=== PATIENT | male | born 1965 | race Caucasian/White ===

== ENCOUNTER 2019-09-04 16:13 | Inpatient (IN) | payer BC ==
[2019-09-04 19:20] VITALS: BMI 22.9
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
[2019-09-05] MEDS ORDERED: BISMUTH SUBSALICYLATE 524 MG/30 ML UD PO PRN (00:27)
[2019-09-05] MEDS ORDERED: MAG HYDROX/AL HYDROX/SIMETH 30 ML UNIT-DOSE CUP PO PRN (00:27)
[2019-09-05] MEDS ORDERED: LORazepam 1 MG TABLET PO ONE (00:27)
[2019-09-05] MEDS ORDERED: MELATONIN 5 MG TABLETS PO PRN (00:27)
[2019-09-05] MEDS ORDERED: MENTHOL/PHENOL 1 EACH UD MM PRN (00:27)
[2019-09-05] MEDS ORDERED: MAGNESIUM CITRATE 300 ML BOTTLE PO PRN (00:27)
[2019-09-05] MEDS ORDERED: MAGNESIUM HYDROX 2400MG/30ML ORAL SUSPENSION 30 ML CUP PO PRN (00:27)
[2019-09-05] MEDS ORDERED: ACETAMINOPHEN 325 MG TABLET (FP) PO PRN ×2 (00:27)
[2019-09-05] MEDS ORDERED: LORazepam 1 MG TABLET PO PRN (00:27)
[2019-09-05] MEDS ORDERED: NICOTINE POLACRILEX 2 MG GUM BUC PRN (00:27)
[2019-09-05] MEDS ORDERED: hydrOXYzine PAMOATE 25 MG CAPSULE (FP) PO PRN (00:27)
[2019-09-05] MEDS ORDERED: LORazepam 1 MG TABLET PO SCH (05:00)
[2019-09-05] MEDS ORDERED: METHADONE HCL 10 MG TABLET PO SCH (09:00)
[2019-09-05] MEDS ORDERED: METHADONE HCL 10 MG TABLET ONE (09:36)
[2019-09-05] MEDS ORDERED: METHADONE HCL 40 MG DISPERSABLE TABLET ONE (09:36)
[2019-09-05] MEDS: METHADONE 40 MG, METHADONE 10 MG PO SCH (09:43)
[2019-09-05] MEDS: PRENATAL VITAMINS W/ FOLIC ACID TABLET (FP) PO SCH (09:44)
[2019-09-05] MEDS: NICOTINE 21 MG/24 HOURS TOPICAL PATCH TD SCH (09:45)
[2019-09-05] MEDS: IBUPROFEN 400 MG TABLET (FP) PO PRN ×2 (09:46→18:07)
[2019-09-05] MEDS ORDERED: NICOTINE 14 MG/24 HOURS TOPICAL PATCH TD SCH (10:00)
[2019-09-05] MEDS ORDERED: diazePAM 5 MG TABLET PO ONE (10:31)
[2019-09-05] MEDS: METHOCARBAMOL 500 MG TABLET PO PRN (10:45)
[2019-09-05] MEDS: diazePAM 5 MG TABLET PO PRN ×2 (12:13→18:07)
--- NOTE | 2019-09-05 15:32 | PN ---
S CIWA - CIWA Score Nausea/Vomitin-No Nausea/No Vomiting Muscle Tremors: 2 Anxiety: 5 Agitation: 4-Moderately Restless Paroxysmal Sweats: No Perspiration Orientation: 0-Oriented Tacttile Disturbances: 0-None Auditory Disturbances: 0-None Visual Disturbances: 1-Very Mild Sensitivity Headache: 2-Mild CIWA-Ar Total Score: 14 S Progress Note (SOAP) Subjective: Anxious, Agitated, Tremors, Sweating, H/A. Objective: PATIENT A & O X 3, OBSERVED AMBULATING ON DETOX UNIT UNASSISTED. IN NO ACUTE DISTRESS. 09/05/19 15:32 Vital Signs Temperature 97.7 F 09/05/19 13:29 Pulse Rate 75 09/05/19 13:29 Respiratory Rate 18 09/05/19 13:29 Blood Pressure 105/66 09/05/19 13:29 O2 Sat by Pulse Oximetry (%) RESULTS OF DETOX ADMISSION LABS PENDING. LABS NOTED. 09/05/19 15:33 Assessment: 09/05/19 15:33 WITHDRAWAL SYMPTOMS. 09/05/19 15:33 Plan: CONTINUE DETOX. PATIENT REQUEST TO BE PRESCRIBED 60 MG ORAL MMTP DOSE WHILE ADMITTED FOR DETOX AND REPORTS THAT THAT IS THE DOSE THAT HE IS SUPPOSED TO BE TAKING. HOWEVER, PER VERIFICATION DONE ON DETOX ADMISSION, PATIENT CURRENTLY PRESCRIBED 50 MG ORALLY DAILY AT MMTP PROGRAM. THIS INFORMATION ALSO CONFIRMED BY Elyse HUFF RN. PATIENT REPORTS THAT ATIVAN DETOX PROTOCOL IS NOT EFFECTIVE FOR HIM IN TERMS OF AMELIORATING WITHDRAWAL SYMPTOMS. AT PATIENT'S REQUEST, DETOX MEDICATION REGIMEN CHANGED TO VALIUM DETOX REGIMEN.
[2019-09-05] MEDS: THIAMINE HCL 100 MG TABLET (FP) PO SCH (22:10)
[2019-09-05] MEDS: diazePAM 5 MG TABLET PO SCH (22:10)
--- NOTE | 2019-09-05 23:26 | EKG ---
Test Reason : Blood Pressure : / mmHG Vent. Rate : 055 BPM Atrial Rate : 055 BPM P-R Int : 144 ms QRS Dur : 082 ms QT Int : 420 ms P-R-T Axes : 056 025 045 degrees QTc Int : 401 ms SINUS BRADYCARDIA OTHERWISE NORMAL ECG WHEN COMPARED WITH ECG OF 10-AUG-2015 14:30, QT HAS SHORTENED Confirmed by SANTOS CARNEY MD ([id number]) on 09/05/2019 11:26:31 PM Referred By: JACK SHELTON Confirmed By:SANTOS CARNEY MD
[2019-09-06] MEDS ORDERED: LORazepam 1 MG TABLET PO SCH (05:00)
[2019-09-06] MEDS ORDERED: METHADONE HCL 10 MG TABLET ONE (05:03)
[2019-09-06] MEDS ORDERED: METHADONE HCL 40 MG DISPERSABLE TABLET ONE (05:04)
[2019-09-06] MEDS: METHADONE 40 MG, METHADONE 10 MG PO SCH (07:21)
[2019-09-06] MEDS: diazePAM 5 MG TABLET PO SCH ×3 (07:21→22:09)
[2019-09-06 10:01] LABS: HEMATOCRIT 34.2 % (35.4-49); HEMOGLOBIN 10.8 GM/dL (11.7-16.9); MCH 24.4 pg (25.7-33.7); MCHC 31.6 g/dl (32.0-35.9); MEAN CELL VOLUME 77.4 fl (80-96); MEAN PLT VOLUME 7.8 fl (7.5-11.1); PLATELET COUNT 166 K/MM3 (134-434); RBC 4.41 M/mm3 (4.00-5.60); RDW 18.5 % (11.9-15.9); WHITE BLOOD COUNT 2.8 K/mm3 (4.0-10.0)
[2019-09-06 10:09] LABS: BILIRUBIN,TOTAL 0.2 mg/dL (0.2-1); BLOOD UREA NITROGEN 22.9 mg/dL (7-18); CALCIUM 8.6 mg/dL (8.5-10.1); CREATININE 0.8 mg/dL (0.55-1.3); POTASSIUM 3.8 mmol/L (3.5-5.1)
[2019-09-06] MEDS: PRENATAL VITAMINS W/ FOLIC ACID TABLET (FP) PO SCH (10:19)
[2019-09-06] MEDS: NICOTINE 21 MG/24 HOURS TOPICAL PATCH TD SCH (10:19)
--- NOTE | 2019-09-06 11:15 | CONSULT ---
[facility] Psychiatric Consult - Data Date of interview: 09/06/19 Admission source: [facility] Identifying data: Patient is a 54 year old single sammar[place] male, without children, unemployed, homeless, and denies receiving financial assistance. This is one of multiple admissions for patient. Patient admitted to for alcohol, cocaine, opiate dependence. Substance Abuse History: Smoking Cessation. Smoking history: Current every day smoker. Have you smoked in the past 12 months: Yes. Aproximately how many cigarettes per day: 20. Hx Chewing Tobacco Use: No. Initiated information on smoking cessation: Yes. 'Breaking Loose' booklet given: 09/05/19. - Substance & Tx. History. Hx Alcohol Use: Yes. Hx Substance Use: Yes. Substance Use Type : Cocaine, Heroin, Marijuana. Hx Substance Use Treatment: Yes. - Substances abused. Alcohol. Substance route: Oral. Frequency: Daily. Amount used: 2 to 6 packs of beer/ Ellen. Age of first use: 12. Date of last use: . Heroin. Substance route: Inhalation. Frequency: Daily. Amount used: 5 bags. Age of first use: 12. Date of last use: 09/02/19. Cocaine. Substance route: Inhalation. Frequency: Daily. Amount used: 2 to 3 bags of 20 dollars. Age of first use: 15. Date of last use: 09/02/19 Medical History: Anemia, HIV, Herpes Psychiatric History: Patient's first psychiatric contact was in 1999 while in [place] [facility]. He was diagnosed with depression and prescribed zoloft. Mr. Rangel reports history of two psychiatric hospitalization at [facility] (2017) and [facility] (unsure of date). Denies history of suicide attempt and is not currently receiving outpatient psychiatric care. At present patient presents as fatigue and sedated. Physical/Sexual Abuse/Trauma History: denies. Mental Status Exam - Mental Status Exam Alert and Oriented to: Time, Place, Person Cognitive Function: Fair Patient Appearance: Well Groomed Mood: Withdrawn Affect: Mood Congruent Patient Behavior: Sedated (mildly sedated), Fatigued Speech Pattern: Delayed Voice Loudness: Mildly Soft/Quiet Thought Process: Goal Oriented Thought Disorder: Not Present Hallucinations: Denies Suicidal Ideation: Denies Homicidal Ideation: Denies Insight/Judgement: Poor Sleep: Fair Appetite: Fair Muscle strength/Tone: Normal Gait/Station: Normal Psychiatric Findings - Problem List ([place] 1, 2,3) (1) Cocaine dependence Current Visit: Yes Status: Chronic Qualifiers: Substance use status: uncomplicated Qualified Code(s): F14.20 - Cocaine dependence, uncomplicated (2) Nicotine dependence Current Visit: Yes Status: Chronic Qualifiers: Nicotine product type: cigarettes Substance use status: uncomplicated Qualified Code(s): F17.210 - Nicotine dependence, cigarettes, uncomplicated (3) Opioid dependence with withdrawal Current Visit: Yes Status: Acute (4) Substance induced mood disorder Current Visit: Yes Status: Acute - Initial Treatment Plan Initial Treatment Plan: Psychoeducation provided. Detoxification in progress. Will order Zoloft 50mg daily. Benefits and side effects discussed. Verbal consent given.
--- NOTE | 2019-09-06 13:59 | PN ---
[facility] CIWA - CIWA Score Nausea/Vomitin-Mild Nausea/No Vomiting Muscle Tremors: 2 Anxiety: 2 Agitation: 2 Paroxysmal Sweats: 2 Orientation: 0-Oriented Tacttile Disturbances: 0-None Auditory Disturbances: 0-None Visual Disturbances: 0-None Headache: 0-None Present CIWA-Ar Total Score: 9 [facility] Progress Note (SOAP) Subjective: Feeling depressed (takes zoloft 50mg daily at home but hasn't taken for past one week), states I'm better off because I'm in a lot of pain, prays that God kills me, I have no plan to hurt myself, I feel sad and hopeless, I don't care about anybody, I'm useless. Runny nose, anxiety, poor sleep. Objective: 09/06/19 13:59 Last Vital Signs Temp Pulse Resp BP Pulse Ox 97.3 F L 68 16 102/64 09/06/19 12:10 09/06/19 12:10 09/06/19 12:10 09/06/19 12:10 Laboratory Tests 09/06/19 09/06/19 09/06/19 07:50 07:50 07:50 WBC 2.8 L RBC 4.41 Hgb 10.8 L Hct 34.2 L MCV 77.4 L MCH 24.4 L MCHC 31.6 L RDW 18.5 H Plt Count 166 D MPV 7.8 Sodium 142 Potassium 3.8 Chloride 108 H Carbon Dioxide 28 Anion Gap 5 L BUN 22.9 H Creatinine 0.8 Est GFR (CKD-EPI)AfAm 116.56 Est GFR (CKD-EPI)NonAf 100.57 Random Glucose 108 H Calcium 8.6 Total Bilirubin 0.2 AST 10 L ALT 15 Alkaline Phosphatase 72 Total Protein 6.0 L Albumin 3.0 L RPR Titer Nonreactive Labs reviewed: wbc 2.8 (L), h/h 10.8/34.2 (L), BUN 22.9 (high), albumin 3.0 (L) Assessment: 09/06/19 14:02 Withdrawal sxs Patient c/o feeling depressed, has h/o depression Noted with anemia, leukopenia, azotemia and hypoalbuminemia Plan: Continue detox Encouraged PO water intake Seen by Psychiatrist for depression (Psychiatrist informed about patient's complaints). Anemia: patient reports h/o anemia, not on medication. Most likely due to chronic alcoholism, follow up with PCP for management. Leukopenia: encouraged good hand washing with soap and water before and after eating/using bathroom, repeat CBC Azotemia: encouraged to drink more water Hypoalbuminemia: most likely due to chronic alcoholism and not eating, encouraged diet
[2019-09-06] MEDS: diazePAM 5 MG TABLET PO PRN (16:50)
[2019-09-06] MEDS: METHOCARBAMOL 500 MG TABLET PO PRN (16:50)
[2019-09-06] MEDS: THIAMINE HCL 100 MG TABLET (FP) PO SCH (22:09)
[2019-09-07] MEDS ORDERED: LORazepam 0.5 MG TABLET PO PRN
[2019-09-07] MEDS ORDERED: METHADONE HCL 10 MG TABLET ONE (03:46)
[2019-09-07] MEDS ORDERED: METHADONE HCL 40 MG DISPERSABLE TABLET ONE (03:46)
[2019-09-07] MEDS ORDERED: LORazepam 0.5 MG TABLET PO SCH (05:00)
[2019-09-07] MEDS: METHADONE 40 MG, METHADONE 10 MG PO SCH (05:47)
[2019-09-07] MEDS: diazePAM 5 MG TABLET PO SCH ×2 (05:47→17:20)
[2019-09-07] MEDS: SERTRALINE HCL 50 MG TABLET (FP) PO SCH (10:36)
[2019-09-07] MEDS: PRENATAL VITAMINS W/ FOLIC ACID TABLET (FP) PO SCH (10:36)
[2019-09-07] MEDS: NICOTINE 21 MG/24 HOURS TOPICAL PATCH TD SCH (10:36)
--- NOTE | 2019-09-07 11:50 | PN ---
S CIWA - CIWA Score Nausea/Vomitin-Mild Nausea/No Vomiting Muscle Tremors: 1-None Visible, but [place] Anxiety: 2 Agitation: 1-Slight > Activity Paroxysmal Sweats: No Perspiration Orientation: 0-Oriented Tacttile Disturbances: 1-Very Mild Itch/Numbness Auditory Disturbances: 0-None Visual Disturbances: 0-None Headache: 1-Very Mild CIWA-Ar Total Score: 7 [facility] Progress Note (SOAP) Subjective: alert,irritable,anxious,interrupted sleep,pain in the body Objective: 09/07/19 11:48 Vital Signs Temperature 98.2 F 09/07/19 11:24 Pulse Rate 81 09/07/19 11:24 Respiratory Rate 18 09/07/19 11:24 Blood Pressure 117/67 09/07/19 11:24 O2 Sat by Pulse Oximetry (%) Assessment: 09/07/19 11:48 repeat cbc pending Plan: continue detox ativan regimen,hiv non compliance,last medication 2 weeks ago, discharge in am
[2019-09-07 13:29] LABS: BASO % 0.9 % (0-2.0); EOS % 2.6 % (0-4.5); HEMATOCRIT 36.7 % (35.4-49); HEMOGLOBIN 11.7 GM/dL (11.7-16.9); LYMPH % 55.2 % (8-40); MCHC 31.8 g/dl (32.0-35.9); MEAN CELL VOLUME 78.6 fl (80-96); MEAN PLT VOLUME 8.1 fl (7.5-11.1); NEUT % 31.3 % (42.8-82.8); PLATELET COUNT 183 K/MM3 (134-434); RBC 4.68 M/mm3 (4.00-5.60); RDW 18.8 % (11.9-15.9); WHITE BLOOD COUNT 3.7 K/mm3 (4.0-10.0)
[2019-09-07] MEDS: THIAMINE HCL 100 MG TABLET (FP) PO SCH (22:12)
[2019-09-07] MEDS: METHOCARBAMOL 500 MG TABLET PO PRN (22:13)
[2019-09-08] MEDS ORDERED: METHADONE HCL 10 MG TABLET ONE (04:21)
[2019-09-08] MEDS ORDERED: METHADONE HCL 40 MG DISPERSABLE TABLET ONE (04:22)
[2019-09-08] MEDS ORDERED: LORazepam 0.5 MG TABLET PO ONE (05:00)
[2019-09-08] MEDS: METHADONE 40 MG, METHADONE 10 MG PO SCH (05:39)
[2019-09-08] MEDS ORDERED: diazePAM 5 MG TABLET PO ONE (06:00)
--- NOTE | 2019-09-08 08:56 | DS ---
[facility] Detox Discharge Summary Admission Date: 09/05/19 Discharge Date: 09/08/19 - History Present History: Alcohol Dependence, Cocaine Dependence, Opioid Dependence - Physical Exam Results Vital Signs: Vital Signs Temperature 97.9 F 09/08/19 06:00 Pulse Rate 75 09/08/19 06:00 Respiratory Rate 18 09/08/19 06:00 Blood Pressure 118/65 09/08/19 06:00 O2 Sat by Pulse Oximetry (%) Pertinent Admission Physical Exam Findings: pt arrived in withdrawals Vital Signs Temperature 97.9 F 09/08/19 06:00 Pulse Rate 75 09/08/19 06:00 Respiratory Rate 18 09/08/19 06:00 Blood Pressure 118/65 09/08/19 06:00 O2 Sat by Pulse Oximetry (%) Laboratory Tests 09/06/19 09/06/19 09/06/19 07:50 07:50 07:50 WBC 2.8 L RBC 4.41 Hgb 10.8 L Hct 34.2 L MCV 77.4 L MCH 24.4 L MCHC 31.6 L RDW 18.5 H Plt Count 166 D MPV 7.8 Absolute Neuts (auto) Neutrophils % Lymphocytes % Monocytes % Eosinophils % Basophils % Nucleated RBC % Sodium 142 Potassium 3.8 Chloride 108 H Carbon Dioxide 28 Anion Gap 5 L BUN 22.9 H Creatinine 0.8 Est GFR (CKD-EPI)AfAm 116.56 Est GFR (CKD-EPI)NonAf 100.57 Random Glucose 108 H Calcium 8.6 Total Bilirubin 0.2 AST 10 L ALT 15 Alkaline Phosphatase 72 Total Protein 6.0 L Albumin 3.0 L RPR Titer Nonreactive 09/07/19 08:17 WBC 3.7 L RBC 4.68 Hgb 11.7 Hct 36.7 MCV 78.6 L MCH 25.0 L MCHC 31.8 L RDW 18.8 H Plt Count 183 MPV 8.1 Absolute Neuts (auto) 1.2 L Neutrophils % 31.3 L D Lymphocytes % 55.2 H D Monocytes % 10.0 Eosinophils % 2.6 D Basophils % 0.9 D Nucleated RBC % 0 Sodium Potassium Chloride Carbon Dioxide Anion Gap BUN Creatinine Est GFR (CKD-EPI)AfAm Est GFR (CKD-EPI)NonAf Random Glucose Calcium Total Bilirubin AST ALT Alkaline Phosphatase Total Protein Albumin RPR Titer H:H show improvement aaox3 ambulating no acute distress - Treatment Hospital Course: Detox Protocol Followed, Detoxed Safely, Responded well, Discharged Condition Good, Rehab Referral Accepted Patient has Accepted a Rehab Referral to: pt referral provided - Diagnosis (1) Opioid dependence with withdrawal Current Visit: Yes Status: Chronic (2) Substance induced mood disorder Current Visit: Yes Status: Acute (3) Cocaine dependence Current Visit: Yes Status: Chronic Qualifiers: Substance use status: uncomplicated Qualified Code(s): F14.20 - Cocaine dependence, uncomplicated (4) HIV (human immunodeficiency virus infection) Current Visit: Yes Status: Chronic Qualifiers: HIV symptom status: unspecified Qualified Code(s): B20 - Human immunodeficiency virus [HIV] disease (5) Nicotine dependence Current Visit: Yes Status: Chronic Qualifiers: Nicotine product type: cigarettes Substance use status: uncomplicated Qualified Code(s): F17.210 - Nicotine dependence, cigarettes, uncomplicated (6) Alcohol abuse Current Visit: No Status: Acute (7) MDD (major depressive disorder), recurrent episode Current Visit: No Status: Acute (8) Opioid dependence Current Visit: Yes Status: Chronic Qualifiers: Substance use status: uncomplicated Qualified Code(s): F11.20 - Opioid dependence, uncomplicated (9) Substance induced mood disorder Current Visit: No Status: Chronic - AMA Did Patient Leave Against Medical Advice: No
[2019-09-08 09:17] VITALS: BP 116/63; PULSE 84; TEMP 98.8
[2019-09-08] MEDS: SERTRALINE HCL 50 MG TABLET (FP) PO SCH (10:14)
[2019-09-08] MEDS: PRENATAL VITAMINS W/ FOLIC ACID TABLET (FP) PO SCH (10:14)
[2019-09-08] MEDS: NICOTINE 21 MG/24 HOURS TOPICAL PATCH TD SCH (10:15)
== END 2019-09-08 11:35 | disposition home or self-care (01) | DRG 773 ==
LOC: YASAS 16:13 → Y6N 09-05 00:42
PROVIDERS: ADMIT Allergy & Immunology; ATTEND Allergy & Immunology
PROC: HZ2ZZZZ Detoxification Services for Substance Abuse Treatment (ICD-10-PCS; principal; 2019-09-05)
DX: F10.230 Alcohol dependence with withdrawal, uncomplicated (principal); F11.23 Opioid dependence with withdrawal; F14.20 Cocaine dependence, uncomplicated; F17.210 Nicotine dependence, cigarettes, uncomplicated; F33.1 Major depressive disorder, recurrent, moderate; F19.24 Other psychoactive substance dependence with psychoactive substance-induced mood disorder; Z21 Asymptomatic human immunodeficiency virus [HIV] infection status; E88.09 Other disorders of plasma-protein metabolism, not elsewhere classified; D64.9 Anemia, unspecified; D72.819 Decreased white blood cell count, unspecified; R79.89 Other specified abnormal findings of blood chemistry; Z86.19 Personal history of other infectious and parasitic diseases
CPT/HCPCS: 36415; 80053; 85025; 85027; 86593; 93005; 93010

== ENCOUNTER 2022-07-06 11:28 | Inpatient (IN) | payer BC ==
[2022-07-06 12:22] VITALS: BMI 20.7
[2022-07-06] MEDS ORDERED: MAGNESIUM HYDROX 2400MG/30ML ORAL SUSPENSION 30 ML CUP PO PRN (13:49)
[2022-07-06] MEDS ORDERED: NALOXONE HCL (KLOXXADO) 8 MG SPRAY NS PRN (13:49)
[2022-07-06] MEDS ORDERED: BISMUTH SUBSALICYLATE 262 MG/15 ML BTL PO PRN (13:49)
[2022-07-06] MEDS ORDERED: DICYCLOMINE HCL 10 MG CAPSULE PO PRN (13:49)
[2022-07-06] MEDS ORDERED: LOPERAMIDE HCL 2 MG CAPSULE PO PRN (13:49)
[2022-07-06] MEDS ORDERED: MAG HYDROX/AL HYDROX/SIMETH 30 ML UNIT-DOSE CUP PO PRN (13:49)
[2022-07-06] MEDS ORDERED: IBUPROFEN 400 MG TABLET (FP) PO PRN (13:49)
[2022-07-06] MEDS ORDERED: BENZOCAINE/MENTHOL (CHLORASEPTIC ) LOZENGE MM PRN (13:49)
[2022-07-06] MEDS ORDERED: MAGNESIUM CITRATE 300 ML BOTTLE PO PRN (13:49)
[2022-07-06] MEDS ORDERED: ONDANSETRON *ODT* 4 MG TABLET SL PRN (13:49)
[2022-07-06] MEDS ORDERED: ACETAMINOPHEN 325 MG TABLET (FP) PO PRN ×2 (13:49)
[2022-07-06] MEDS ORDERED: IBUPROFEN 600 MG TABLET (FP) PO PRN (13:49)
[2022-07-06] MEDS ORDERED: cloNIDine HCL 0.1 MG TABLET PO PRN (13:57)
[2022-07-06] MEDS ORDERED: diazePAM 5 MG TABLET PO PRN (13:59)
[2022-07-06] MEDS: hydrOXYzine PAMOATE 25 MG CAPSULE (FP) PO SCH ×3 (15:17→22:49)
[2022-07-06] MEDS: NICOTINE 21 MG/24 HOURS TOPICAL PATCH TD SCH (15:18)
[2022-07-06] MEDS: NICOTINE 10 MG CARTRIDGE (INHALER) IH PRN (15:19)
[2022-07-06] MEDS ORDERED: methaDONE HCL 10 MG TABLET (FOR DETOX USE ONLY) PO ONE (17:00)
[2022-07-06] MEDS: diazePAM 5 MG TABLET PO SCH ×2 (18:04→22:51)
[2022-07-06] MEDS: MELATONIN 5 MG TABLETS PO SCH (22:49)
[2022-07-06] MEDS: THIAMINE HCL 100 MG TABLET (FP) PO SCH (22:49)
[2022-07-06] MEDS: BACITRACIN 15 GM TUBE TOPICAL OINTMENT TP SCH (22:51)
[2022-07-07] MEDS: diazePAM 5 MG TABLET PO SCH ×4 (05:27→22:25)
[2022-07-07] MEDS: hydrOXYzine PAMOATE 25 MG CAPSULE (FP) PO SCH ×5 (05:27→22:25)
[2022-07-07] MEDS: PRENATAL VITAMINS W/ FOLIC ACID TABLET (FP) PO SCH (10:50)
[2022-07-07] MEDS: NICOTINE 21 MG/24 HOURS TOPICAL PATCH TD SCH (10:50)
[2022-07-07] MEDS: SERTRALINE HCL 50 MG TABLET (FP) PO SCH (10:50)
[2022-07-07] MEDS: METHOCARBAMOL 500 MG TABLET PO PRN ×2 (10:50→22:28)
[2022-07-07] MEDS: BACITRACIN 15 GM TUBE TOPICAL OINTMENT TP SCH ×2 (10:51→22:48)
[2022-07-07 12:11] LABS: HEMATOCRIT 31.4 % (35.4-49); HEMOGLOBIN 9.9 GM/dL (11.7-16.9); MCH 24.5 pg (25.7-33.7); MCHC 31.5 g/dl (32.0-35.9); MEAN PLT VOLUME 7.4 fl (7.5-11.1); PLATELET COUNT 246 10^3/uL (134-434); RBC 4.02 M/mm3 (4.00-5.60); RDW 16.3 % (11.9-15.9); WHITE BLOOD COUNT 4.1 K/mm3 (4.0-10.0)
[2022-07-07 12:25] LABS: ALBUMIN 2.6 g/dl (3.4-5.0); BLOOD UREA NITROGEN 25.7 mg/dL (7-18)
[2022-07-07 12:28] LABS: CREATININE 0.8 mg/dL (0.55-1.3)
[2022-07-07 12:31] LABS: BILIRUBIN,TOTAL 0.3 mg/dL (0.2-1); TOT PROT 5.9 g/dl (6.4-8.2)
[2022-07-07] MEDS: NICOTINE 10 MG CARTRIDGE (INHALER) IH PRN ×2 (13:48→22:26)
[2022-07-07] MEDS: THIAMINE HCL 100 MG TABLET (FP) PO SCH (22:25)
[2022-07-07] MEDS: MELATONIN 5 MG TABLETS PO SCH (22:25)
[2022-07-08] MEDS: hydrOXYzine PAMOATE 25 MG CAPSULE (FP) PO SCH ×5 (05:40→22:46)
[2022-07-08] MEDS: diazePAM 5 MG TABLET PO SCH ×3 (05:40→22:47)
[2022-07-08] MEDS ORDERED: methaDONE HCL 10 MG TABLET (FOR DETOX USE ONLY) PO ONE (10:00)
[2022-07-08] MEDS: PRENATAL VITAMINS W/ FOLIC ACID TABLET (FP) PO SCH (10:40)
[2022-07-08] MEDS: NICOTINE 10 MG CARTRIDGE (INHALER) IH PRN ×2 (10:41→16:24)
[2022-07-08] MEDS: NICOTINE 21 MG/24 HOURS TOPICAL PATCH TD SCH (10:41)
[2022-07-08] MEDS: METHOCARBAMOL 500 MG TABLET PO PRN (10:42)
[2022-07-08] MEDS: SERTRALINE HCL 50 MG TABLET (FP) PO SCH (10:42)
[2022-07-08] MEDS: BACITRACIN 15 GM TUBE TOPICAL OINTMENT TP SCH ×2 (10:46→22:45)
[2022-07-08] MEDS: THIAMINE HCL 100 MG TABLET (FP) PO SCH (22:46)
[2022-07-08] MEDS: MELATONIN 5 MG TABLETS PO SCH (22:46)
[2022-07-09] MEDS: diazePAM 5 MG TABLET PO SCH ×2 (06:16→17:42)
[2022-07-09] MEDS: hydrOXYzine PAMOATE 25 MG CAPSULE (FP) PO SCH ×5 (06:17→21:54)
[2022-07-09] MEDS: NICOTINE 10 MG CARTRIDGE (INHALER) IH PRN ×2 (08:51→21:54)
[2022-07-09] MEDS: PRENATAL VITAMINS W/ FOLIC ACID TABLET (FP) PO SCH (10:13)
[2022-07-09] MEDS: SERTRALINE HCL 50 MG TABLET (FP) PO SCH (10:13)
[2022-07-09] MEDS: BACITRACIN 15 GM TUBE TOPICAL OINTMENT TP SCH ×2 (10:14→21:54)
[2022-07-09] MEDS: NICOTINE 21 MG/24 HOURS TOPICAL PATCH TD SCH (10:14)
[2022-07-09] MEDS: METHOCARBAMOL 500 MG TABLET PO PRN (10:15)
[2022-07-09 10:39] LABS: CALCIUM 8.9 mg/dL (8.5-10.1)
[2022-07-09 10:42] LABS: CREATININE 0.8 mg/dL (0.55-1.3)
[2022-07-09] MEDS: MELATONIN 5 MG TABLETS PO SCH (21:54)
[2022-07-09] MEDS: THIAMINE HCL 100 MG TABLET (FP) PO SCH (21:54)
[2022-07-10] MEDS: hydrOXYzine PAMOATE 25 MG CAPSULE (FP) PO SCH ×5 (05:44→22:40)
[2022-07-10] MEDS ORDERED: diazePAM 5 MG TABLET PO ONE (06:00)
[2022-07-10] MEDS ORDERED: methaDONE HCL 10 MG TABLET (FOR DETOX USE ONLY) PO ONE (10:00)
[2022-07-10] MEDS: SERTRALINE HCL 50 MG TABLET (FP) PO SCH (11:01)
[2022-07-10] MEDS: NICOTINE 21 MG/24 HOURS TOPICAL PATCH TD SCH (11:01)
[2022-07-10] MEDS: PRENATAL VITAMINS W/ FOLIC ACID TABLET (FP) PO SCH (11:07)
[2022-07-10] MEDS: BACITRACIN 15 GM TUBE TOPICAL OINTMENT TP SCH ×2 (11:07→22:40)
[2022-07-10] MEDS: NICOTINE 10 MG CARTRIDGE (INHALER) IH PRN (11:07)
[2022-07-10] MEDS: METHOCARBAMOL 500 MG TABLET PO PRN (11:07)
[2022-07-10] MEDS: MELATONIN 5 MG TABLETS PO SCH (22:40)
[2022-07-10] MEDS: THIAMINE HCL 100 MG TABLET (FP) PO SCH (22:40)
[2022-07-11] MEDS: hydrOXYzine PAMOATE 25 MG CAPSULE (FP) PO SCH ×2 (06:23→10:28)
[2022-07-11 09:13] VITALS: BP 91/53; PULSE 90; RESP 16; TEMP 97.3
[2022-07-11] MEDS: BACITRACIN 15 GM TUBE TOPICAL OINTMENT TP SCH (10:28)
[2022-07-11] MEDS: PRENATAL VITAMINS W/ FOLIC ACID TABLET (FP) PO SCH (10:28)
[2022-07-11] MEDS: NICOTINE 21 MG/24 HOURS TOPICAL PATCH TD SCH (10:28)
[2022-07-11] MEDS: SERTRALINE HCL 50 MG TABLET (FP) PO SCH (10:29)
== END 2022-07-11 09:55 | disposition home or self-care (01) | DRG 773 ==
LOC: YASAS 11:28 → Y3N 15:00
PROVIDERS: ADMIT Allergy & Immunology; ATTEND Surgery
PROC: HZ2ZZZZ Detoxification Services for Substance Abuse Treatment (ICD-10-PCS; principal; 2022-07-06)
DX: F11.23 Opioid dependence with withdrawal (principal); F13.20 Sedative, hypnotic or anxiolytic dependence, uncomplicated; F14.20 Cocaine dependence, uncomplicated; F15.10 Other stimulant abuse, uncomplicated; F17.210 Nicotine dependence, cigarettes, uncomplicated; F19.24 Other psychoactive substance dependence with psychoactive substance-induced mood disorder; F33.9 Major depressive disorder, recurrent, unspecified; F41.9 Anxiety disorder, unspecified; F32.A Depression, unspecified; U07.1 COVID-19; Z21 Asymptomatic human immunodeficiency virus [HIV] infection status; D64.9 Anemia, unspecified; E46 Unspecified protein-calorie malnutrition; R79.89 Other specified abnormal findings of blood chemistry
CPT/HCPCS: 36415; 80048; 80053; 85027; 86780; 93005; 93010; C9803-CS; U0003; U0005

== ENCOUNTER 2024-07-05 09:45 | Inpatient (IN) | payer BC ==
[2024-07-05 10:15] VITALS: BMI 20.2
[2024-07-05] MEDS ORDERED: POLYETHYLENE GLYCOL (HEALTHYLAX) 3350 17 GM PACKET PO PRN (11:11)
[2024-07-05] MEDS ORDERED: IBUPROFEN 400 MG TABLET (FP) PO PRN (11:11)
[2024-07-05] MEDS ORDERED: LOPERAMIDE HCL 2 MG CAPSULE PO PRN (11:11)
[2024-07-05] MEDS ORDERED: NALOXONE (NARCAN) HCL 4 MG/0.1 ML SPRAY NS PRN (11:11)
[2024-07-05] MEDS ORDERED: METHOCARBAMOL 500 MG TABLET PO PRN (11:11)
[2024-07-05] MEDS ORDERED: ONDANSETRON *ODT* 4 MG TABLET SL PRN (11:11)
[2024-07-05] MEDS ORDERED: diazePAM 5 MG TABLET PO PRN (11:11)
[2024-07-05] MEDS ORDERED: MAG HYDROX/AL HYDROX/SIMETH 30 ML UNIT-DOSE CUP PO PRN (11:11)
[2024-07-05] MEDS ORDERED: hydrOXYzine PAMOATE 25 MG CAPSULE (FP) PO PRN (11:11)
[2024-07-05] MEDS ORDERED: BISMUTH SUBSALICYLATE 524 MG/30 ML PO PRN (11:11)
[2024-07-05] MEDS ORDERED: BENZONATATE 200 MG CAPSULE PO PRN (11:11)
[2024-07-05] MEDS ORDERED: ACETAMINOPHEN 325 MG TABLET (FP) PO PRN (11:11)
[2024-07-05] MEDS ORDERED: IBUPROFEN 600 MG TABLET (FP) PO PRN (11:11)
[2024-07-05] MEDS ORDERED: BENZOCAINE/MENTHOL (CHLORASEPTIC ) LOZENGE MM PRN (11:11)
[2024-07-05] MEDS ORDERED: MAGNESIUM HYDROX 2400MG/30ML ORAL SUSPENSION 30 ML CUP PO PRN (11:11)
[2024-07-05] MEDS ORDERED: guaiFENesin 600 MG TABLET.ER (FP) PO PRN (11:11)
[2024-07-05] MEDS ORDERED: DICYCLOMINE HCL 10 MG CAPSULE PO PRN (11:11)
[2024-07-05] MEDS: NALOXONE (NYS OPIOID OVERDOSE PROGRAM) 4 MG/0.1 ML SPRAY NS ONE (11:48)
[2024-07-05] MEDS: diazePAM 5 MG TABLET PO SCH (18:25)
[2024-07-05] MEDS: THIAMINE 100 MG TABLET PO SCH (22:37)
[2024-07-05] MEDS: MELATONIN 5 MG TABLETS PO SCH (22:38)
[2024-07-06] MEDS: PRENATAL VITAMINS W/ FOLIC ACID TABLET (FP) PO SCH (09:54)
[2024-07-06] MEDS: NICOTINE 21 MG/24 HOURS TOPICAL PATCH TD SCH (09:55)
[2024-07-06] MEDS: BICTEGRAV/EMTRICIT/TENOFOV (BIKTARVY) 50-200-25 MG TABLET PO SCH (09:55)
[2024-07-06] MEDS: methaDONE HCL 40 MG DISPERSABLE TABLET PO ONE (09:55)
[2024-07-06] MEDS: SERTRALINE HCL 50 MG TABLET (FP) PO SCH (10:56)
[2024-07-06 12:07] LABS: HEMATOCRIT 34.6 % (35.4-49); HEMOGLOBIN 10.6 GM/dL (11.7-16.9); MCH 21.5 pg (25.7-33.7); MCHC 30.5 g/dl (32.0-35.9); MEAN CELL VOLUME 70.3 fl (80-96); MEAN PLT VOLUME 7.2 fl (7.5-11.1); PLATELET COUNT 280 10^3/uL (134-434); RBC 4.92 M/mm3 (4.00-5.60); RDW 20.8 % (11.9-15.9); WHITE BLOOD COUNT 4.6 K/mm3 (4.0-10.0)
[2024-07-06 12:14] LABS: CHLORIDE 104 mmol/L (98-107); POTASSIUM 3.9 mmol/L (3.5-5.1); SODIUM 138 mmol/L (136-145)
[2024-07-06 12:22] LABS: ALBUMIN 2.8 g/dl (3.4-5.0); ANION GAP 5 mmol/L (4-13); BLOOD UREA NITROGEN 20.7 mg/dL (7-18); CALCIUM 8.8 mg/dL (8.5-10.1); CO2 30 mmol/L (21-32)
[2024-07-06 12:23] LABS: GLUCOSE,RANDOM 122 mg/dL (74-106)
[2024-07-06 12:26] LABS: CREATININE 0.9 mg/dL (0.55-1.3); SGOT/AST 21 U/L (15-37); SGPT/ALT 18 U/L (13-61)
[2024-07-06 12:27] LABS: BILIRUBIN,TOTAL 0.4 mg/dL (0.2-1); TOT PROT 6.8 g/dl (6.4-8.2)
[2024-07-06 12:28] LABS: ALK PHOS 87 U/L (45-117)
[2024-07-07] MEDS: diazePAM 5 MG TABLET PO SCH (05:59)
[2024-07-07] MEDS: methaDONE HCL 40 MG DISPERSABLE TABLET PO SCH (05:59)
[2024-07-08 00:15] LABS: URINE APPEARANCE CLEAR; URINE BILIRUBIN NEGATIVE (NEGATIVE); URINE COLOR YELLOW; URINE GLUCOSE (UA) NEGATIVE (NEGATIVE); URINE KETONE NEGATIVE (NEGATIVE); URINE LEUK ESTERASE NEGATIVE (NEGATIVE); URINE NITRITE NEGATIVE (NEGATIVE); URINE PROTEIN NEGATIVE (NEGATIVE); URINE UROBILINOGEN 0.2 mg/dL (0.2-1.0)
[2024-07-08] MEDS: diazePAM 5 MG TABLET PO SCH (05:51)
[2024-07-09] MEDS: diazePAM 5 MG TABLET PO ONE (05:59)
[2024-07-09 08:59] VITALS: BP 101/62; PULSE 74; RESP 16; TEMP 97.8
[2024-07-09] MEDS: NALOXONE (NYS OPIOID OVERDOSE PROGRAM) 4 MG/0.1 ML SPRAY NS PRN (12:37)
[2024-07-10] MEDS ORDERED: TAMSULOSIN HCL 0.4 MG CAP PO SCH (08:30)
== END 2024-07-09 13:55 | disposition home or self-care (01) | DRG 773 ==
LOC: YASAS 09:45 → Y6N 11:08
PROVIDERS: ADMIT Surgery; ATTEND Surgery
PROC: HZ2ZZZZ Detoxification Services for Substance Abuse Treatment (ICD-10-PCS; principal; 2024-07-05)
DX: F10.230 Alcohol dependence with withdrawal, uncomplicated (principal); F11.20 Opioid dependence, uncomplicated; F17.210 Nicotine dependence, cigarettes, uncomplicated; F33.9 Major depressive disorder, recurrent, unspecified; Z21 Asymptomatic human immunodeficiency virus [HIV] infection status; N40.0 Benign prostatic hyperplasia without lower urinary tract symptoms; R63.4 Abnormal weight loss; Z68.20 Body mass index [BMI] 20.0-20.9, adult; Z79.899 Other long term (current) drug therapy
CPT/HCPCS: 36415; 80053; 80305; 80307; 81003; 85027; 86780; 93005; 93010